=== PATIENT | male | born 1975 | race Caucasian/White ===

== ENCOUNTER 2023-07-24 09:11 | Outpatient (CLI) | payer OTHER, SELFPAY ==
--- NOTE | 2023-08-02 12:41 | WPDSLEEPSTUD ---
Sleep Study Date of Study: 07/24/23 Ordering Provider: Angelo Smith Interpreting Physician: Liset Maza MD Sleep Study Type: CPAP Titration Height: 1.8 m Weight: 93.44 kg Body Mass Index: 28.7 Neck Circumference (inches): 16.25 [place]: 13 Reason for Sleep Study Known obstructive sleep apnea, currently using a rental CPAP machine as his CPAP is broken. He needs a repeat study to qualify for new equipment with worsening snoring and worsening daytime fatigue. * 05/19/2020 PSG at [facility], [place], [place]; AHI 12.1; central AHI 0.73; REM AHI 21.8 sleep latency 0.6 minutes, sleep efficiency 96.1%, lowest saturation 81%, 10.7 minute spent below 88%, PLM index 20.5, PLM arousal index 3.2. * Excellent compliance on APAP 4 cm - 12 cm with EPR 3;> 4 hours on 88% of the nights 04/05/23 through 07/02/23; AHI 1.3, 95th percentile air leak 5.9 liters/minute, 95th percentile pressure is 12 cm. Median pressure is 11.1 cm. Sleep History Ramon Jason is a 48-year-old man with obstructive sleep apnea diagnosed several years ago. He rarely awakens from sleep feeling short of breath. He never wakes at night with heartburn, belching or coughing.??He constantly snores which is constantly loud enough that others complain about it. He occasionally has difficulty sleeping with a cold. He never wakes up gasping for breath at night. He rarely has breathing difficulties noted by others. He rarely sweats excessively at night. He does not notice his heart pounding or beating irregularly at night. He rarely falls asleep during the day. He does not fall asleep involuntarily, while driving, and does not have loss of muscle tone with strong emotion. He does not have daytime difficulties due to his excessive sleepiness. He does not feel paralyzed on falling asleep or upon awakening. He does not have vivid dreamlike scenes upon falling asleep or upon awakening. He does not feel afraid to go to sleep. He does not have nightmares. He occasionally remembers his dreams. He rarely has racing thoughts. He does not feel sad or depressed. Rarely he has anxiety. He occasionally has muscular tension. He rarely notices parts of his body jerking. He frequently kicks at night. He rarely has crawling aching feelings in his legs or any kind of leg pain at night. He does not have morning jaw pain. He constantly grinds his teeth at night. He constantly is bothered by pain during the day. He frequently is awakened by pain at night. He always wakes up feeling stiff in the morning with sore achy muscles and pain in the neck and spine. He has fatigue and insomnia. Normal bedtime is 10:00 p.m., falling asleep within 15 minutes, waking twice at night, no particular reason, is able to return to sleep within 10 minutes. His normal wake time is 6:00 a.m.. On weekends, he keeps a similar schedule, bedtime is 10:00 p.m. and wake time is 7:00 a.m.. He estimates getting 8 hours of sleep most nights. He takes naps in the afternoon or evening however short nap lasting 10-15 minutes is not refreshing. He feels drowsy on waking. He has gained weight over the last year. Habits:??Tobacco: never smoker Caffeine: 6-8 caffeinated beverages per day. 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 Social History Social History (Updated 06/04/23 @ 11:42 by Sumi Ren
[2023-08-02 16:45] VITALS: BMI 28.7
== END 2023-07-25 07:11 | disposition home or self-care (01) ==
LOC: ANHCSM 09:12
PROVIDERS: PCP Family Medicine
DX: G47.33 Obstructive sleep apnea (adult) (pediatric) (principal); R06.83 Snoring; R40.0 Somnolence; E84.0 Cystic fibrosis with pulmonary manifestations; J44.9 Chronic obstructive pulmonary disease, unspecified; Z99.89 Dependence on other enabling machines and devices
CPT/HCPCS: 95811

== ENCOUNTER 2023-11-04 21:26 | Emergency (ER) | payer BC, SELFPAY ==
--- NOTE | ~2023-11-04 | XR_ITS ---
Right ankle Technique: AP, oblique, and lateral views were obtained. Clinical History: Injury Findings: No acute fracture or dislocation is seen. Osseous alignment is anatomic. Ankle mortise and other visualized joint spaces are preserved. Soft tissues are otherwise unremarkable. Impression: Unremarkable right ankle. Reviewed, dictated and finalized at location . Impression: Unremarkable right ankle.
[2023-11-04 21:38] VITALS: BP 136/74; PULSE 87; RESP 14; TEMP 36.4; O2SAT 96
--- NOTE | 2023-11-04 22:18 | PC.NURSE ---
edp compa phillip for 30mg toradol IM x1 for patient chief complaint of pain. this rn used closed loop communication to confirm route/ dose/ time/ patient/ medication. compa pereira confirmed.
[2023-11-04] MEDS: KETOROLAC 30 MG/ML VIAL (*BKC) IM (22:24)
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
== END 2023-11-04 22:49 | disposition home or self-care (01) ==
PROVIDERS: Emergency Provider Physician Assistant
DX: S89.91XA Unspecified injury of right lower leg, initial encounter (principal); E11.9 Type 2 diabetes mellitus without complications; E84.9 Cystic fibrosis, unspecified; X58.XXXA Exposure to other specified factors, initial encounter; Y93.69 Activity, other involving other sports and athletics played as a team or group
CPT/HCPCS: 73610; 96372; 99283; J1885